=== PATIENT | female | born 2000 | race Caucasian/White ===

== ENCOUNTER 2024-01-28 08:00 | Outpatient (RCR) | payer OTHER | END 2024-02-27 | disposition home or self-care (01) | LOC: PT | DX: M25.361 Other instability, right knee (principal) ==

== ENCOUNTER 2024-02-28 15:00 | Outpatient (RCR) | payer MEDICAID | END 2024-03-29 | disposition home or self-care (01) | LOC: PT | DX: M25.361 Other instability, right knee (principal) ==

== ENCOUNTER 2024-04-03 08:00 | Outpatient (RCR) | payer MEDICAID | END 2024-04-03 23:59 | disposition home or self-care (01) | LOC: PT 08:00 | DX: M25.561 Pain in right knee (principal); M25.361 Other instability, right knee ==